=== PATIENT | female | born 1970 | race Hispanic/Latino ===

== ENCOUNTER 2022-11-04 19:23 | Emergency (ER) | payer MEDICAID, OTHER ==
[~2022-11-04] VITALS: Ht 157.5 cm; Wt 72.6 kg
[~2022-11-04 19:23] MED LIST: FAMO-136 PO; GABA-529 PO
[2022-11-04] MEDS ORDERED: HYDROCODONE/ACETAMINOPHEN 7.5/325 MG TAB PO ONE (20:30)
[2022-11-04] MEDS ORDERED: PREG150C PO (20:33)
[2022-11-04 20:46] VITALS: BP 122/78; PULSE 76; RESP 16; O2SAT 98
== END 2022-11-04 20:58 | disposition home or self-care (01) ==
LOC: EDH 19:23
DX: B02.29 Other postherpetic nervous system involvement (principal); I10 Essential (primary) hypertension